=== PATIENT | male | born 1995 | race Asian ===

== ENCOUNTER 2021-03-14 23:39 | Emergency (ER) | payer SELFPAY ==
[~2021-03-14] VITALS: Ht 170.2 cm; Wt 80.0 kg
[2021-03-15 00:13] VITALS: BP 114/70
[2021-03-15] MEDS ORDERED: IBUPROFEN 800 MG TABLET ONE (00:15)
[2021-03-15] MEDS ORDERED: IBUPROFEN 800 MG TABLET PO ONE (00:30)
--- NOTE | 2021-03-15 00:43 | NUR ---
LATE ENTRY DUE TO PT CARE. PT CAME INTO ER FOR RIGHT FOOT PAIN AND SWELLING. CMS INTACT DISTAL TO INJURY. PT GIVEN CRUTCHES TO WALK. NADN. ATTACHED TO MONITORS. VSS. RESTING IN BED.
--- NOTE | 2021-03-15 00:44 | NUR ---
Patient/Caregiver given discharge instructions and they have confirmed that they understand the instructions. Patient ambulatory with steady gait. NAD, all questions answered appropriately, denies additional needs at this time. No personal belongings left in room after discharge. PT GIVEN TAXI VOUCHER FOR SAFE DC. TAXI YELLOW SLIP PUT IN FILE CABINET
== END 2021-03-15 01:01 | disposition home or self-care (01) ==
LOC: ED 03-15 00:35
DX: L03.115 Cellulitis of right lower limb (principal); Z87.891 Personal history of nicotine dependence
CPT/HCPCS: 99283